=== PATIENT | male | born 1980 | race Caucasian/White ===

== ENCOUNTER 2021-03-20 11:36 | Emergency (ER) | payer BC ==
[~2021-03-20] VITALS: Ht 182.9 cm; Wt 113.0 kg
[2021-03-20] MEDS ORDERED: CELE40TA PO (11:45)
[2021-03-20] MEDS ORDERED: LOSA100T50 PO (11:45)
--- OUTSIDE RECORDS SUMMARY | 2021-03-20 11:45 | CCD ---
Author Author [facility] Organization [facility] Address Unknown Phone Unavailable Support Name Relationship Address Phone [place] [address] JEANIE PURVIS Next Of Kin [address] [place] [address] Re-disclosure Warning The records that you are about to access may contain information from federally-assisted alcohol or drug abuse programs. If such information is present, then the following federally mandated warning applies: This information has been disclosed to you from records protected by federal confidentiality rules (42 CFR part 2). The federal rules prohibit you from making any further disclosure of this information unless further disclosure is expressly permitted by the written consent of the person to whom it pertains or as otherwise permitted by 42 CFR part 2. A general authorization for the release of medical or other information is NOT sufficient for this purpose. The Federal rules restrict any use of the information to criminally investigate or prosecute any alcohol or drug abuse patient.The records that you are about to access may contain highly sensitive health information, the redisclosure of which is protected by Article 27-F of the [facility] Public Health law. If you continue you may have access to information: Regarding HIV / AIDS; Provided by facilities licensed or operated by the [facility] Office of Mental Health; or Provided by the [facility] Office for People With Developmental Disabilities. If such information is present, then the following [facility] mandated warning applies: This information has been disclosed to you from confidential records which are protected by state law. State law prohibits you from making any further disclosure of this information without the specific written consent of the person to whom it pertains, or as otherwise permitted by law. Any unauthorized further disclosure in violation of state law may result in a fine or long term sentence or both. A general authorization for the release of medical or other information is NOT sufficient authorization for further disc losure. Medications No Information Insurance Providers Payer name Policy type / Coverage type Policy ID Covered democrat ID Covered democrat's relationship to forbes Policy Forbes Plan Information STATE INSURANCE FUND [id number] SP [id number] [facility] RENT TO OWN [id number] SP [id number] [facility] PLAN [id number] SP [id number] [facility] RENT [facility] OWN [id number] SP [id number] MEDICAID [id number] SP [id number] Problems, Conditions, and Diagnoses No Information Surgeries/Procedures No Information Results No Information Social History No Information
--- OUTSIDE RECORDS SUMMARY | 2021-03-20 14:28 | CCD ---
Author Author [facility] Address Unknown Phone Unavailable Support Name Relationship Address Phone [place] [address] JEANIE PURVIS Next Of Kin [address] [place] [address] Re-disclosure Warning The records that you are [...] is protected by Article 27-F of the [facility] Public Health law. If you continue you may have access to information: Regarding HIV / AIDS; Provided by facilities licensed or operated by the [facility] Office of Mental Health; or Provided by the [facility] Office for People With Developmental Disabilities. If such information is present, then the following [facility] mandated warning applies: This information has been [...] law may result in a fine or correction sentence or both. A general authorization for the release of medical or other information is NOT sufficient authorization for further disc losure. Medications No Information Insurance Providers Payer name Policy type / Coverage type Policy ID Covered democrat ID Covered democrat's relationship to forbes Policy Forbes Plan Information BCBS [facility] HMO [id number] SP [id number] [facility] INSURANCE [facility] [id number] SP [id number] [facility] RENT TO OWN [id number] SP [id number] [employer] [facility] PLAN [id number] SP [id number] [facility] RENT TO OWN [id number] SP [id number] MEDICAID [id number] SP [id number] Problems, Conditions, and Diagnoses No Information Surgeries/Procedures No Information Results No Information Social History No Information
[2021-03-20] MEDS ORDERED: LIDOCAINE 4% CREAM 5GM (LMX4) TOP ONE (15:20)
[2021-03-20] MEDS ORDERED: diazePAM 10 MG TAB PO ONE (15:20)
[2021-03-20] MEDS ORDERED: KETOROLAC 60MG 2ML VIAL IM ONE (15:20)
--- NOTE | 2021-03-20 15:52 | REP ---
INDICATION: neck pain, bilat hand tingling. COMPARISON: 03/23/2012 TECHNIQUE: Trauma protocol with coronal and sagittal bone window reconstructions. FINDINGS: Loss of the normal cervical lordosis is evident on the sagittal reconstructions. There is spondylosis with some progressive disc space narrowing at the C3-4 level. The C5-6 level also shows mild the spondylosis with disc space narrowing, stable no compression deformity or destructive lesion there are posterior osteophytes at C3-4 the dens is intact insert a ship to the anterior arch and lateral masses of C1 normal. Craniocervical and cervicothoracic junction are normal. No prevertebral swelling. Posterior elements show the spinous processes, lamina, pedicles, facets, transverse processes and transverse foramina out fracture or focal lesion it is at C3-4 contribute to some mild central canal narrowing. Uncinate spurring at this level noted with marginally adequate foramen on the right, mildly stenotic left C3-4 foramen. The other levels all have adequate foramina and no central canal stenosis.. Soft tissues of the neck grossly symmetric and intact. The upper thoracic region with portions of the 1st 3 ribs appear normal and the visualized lung apices are clear. IMPRESSION: 1. Some cervical spondylosis mildly progressive at C3-4 since the 2011 study but without compression fracture, malalignment, prevertebral swelling or avulsions. Some mild central canal stenosis at C3-4 due to posterior osteophytes and marginally adequate right and mildly stenotic left foramen at C3-4. The other disc levels and foramina were adequate. 2. C1-2 relationships normal on all views. No acute bony finding. <Electronically signed by Ronald Reveles > 03/20/21 [id number]
[2021-03-20] MEDS ORDERED: NAPR-837 PO (16:38)
[2021-03-20] MEDS ORDERED: METH-1165 PO (16:38)
[2021-03-20] MEDS ORDERED: ANEC4CRE3 TOP (16:38)
[2021-03-20 16:48] VITALS: BP 146/87
--- NOTE | 2021-03-21 07:45 | ED PDOC ---
Post-Departure Follow-Up radiology report faxed to Emma Ordonez MD Mar 21, 2021 07:45
== END 2021-03-20 16:49 | disposition home or self-care (01) ==
LOC: M ED 11:36
DX: M54.2 Cervicalgia (principal); M62.838 Other muscle spasm; M47.812 Spondylosis without myelopathy or radiculopathy, cervical region; M48.02 Spinal stenosis, cervical region; M25.78 Osteophyte, vertebrae; I10 Essential (primary) hypertension; J30.2 Other seasonal allergic rhinitis
CPT/HCPCS: 72125; 96372; 99283; J1885